=== PATIENT | male | born 1995 | race Caucasian/White ===

== ENCOUNTER 2017-11-21 20:51 | Emergency (ER) | payer OTHER, SELFPAY ==
[2017-11-21 20:56] VITALS: BP 143/97; PULSE 70; RESP 14; TEMP 37.1; O2SAT 98
--- NOTE | 2017-11-21 22:06 | ED.GENADUL_ITS ---
Disposition Clinical Impression: Hand laceration Disposition: HOME Condition: Fair Instructions: Laceration (ED) Additional Instructions: Keep wound clean, dry, covered. Monitor for signs of infection including redness, warmth, drainage, increased pain, fever/chills. If these arise please seek care urgently once again. He may wash with running water but do not soak or submerge this will increase her risk of infection. Please avoid activities that will increase her risk of infection such as submerging her hand, working in a dirty environment. If you are currently working outside, please wear gloves. Please return in 7 days for suture removal. Use Haim wrap to help support the area while he continue to heal. Avoid pushing off with hand or over extending the thumb as this may put undue pressure on the wound. Referrals: [facility] Emergency Dept. [Outside] Forms: Work Release Medical Decision Making - Medical Decision Making Patient presents with chief complaint of laceration to the left thenar eminence. On exam, he is a curvilinear 1.5 cm laceration. Patient reports he is up-to-date on tetanus. Subcutaneous tissue is noted. Patient continues to staff. She denied discussed closure techniques. Given the location of feel it is not a good candidate for adhesive as he is likely going to continue to put stress on the wound. Therefore, we discussed closure with sutures. We discussed risk/benefits as well as expected procedural steps. He voiced understanding and wished to proceed. Procedure note: Using standard sterile technique, 1% lidocaine plain was used to infiltrate the laceration. 5 cc was used. The sufficiently anesthetized the area. It was then copiously irrigated with sterile saline and chlorhexidine. Wound is explored to base in a bloodless field. No foreign body debris was noted. Fatty subcutaneous tissue is visualized. No muscular tendinous involvement is noted. Attention was then turned to closure. #3 simple interrupted sutures were placed using a 5-0 nylon. Patient tolerated this procedure well and a dry sterile bandage will be placed by nursing staff. Patient I discussed wound care in depth. Nursing staff applied sterile dressing and Haim wrap over this. I am hoping that with the Haim in place will be a gentle reminder to help Not over extend the thumb place undue pressure on the wound. We discussed the signs symptoms of infection when to seek care urgently once again. He will return in 7 days for suture removal. Advised Tylenol and/or ibuprofen as needed for discomfort. We discussed activities that he should avoid it will place excessive pressure on the wound as well as increase his risk of infection. Advised he may wash with running water but should not soak or submerge. He will keep current dressing on for the next 24 hours. After that time, we will keep wound clean, dry, covered. All his questions and concerns were addressed and he is in agreement with this plan. History of Present Illness - General Chief complaint: Laceration Stated complaint: LEFT THUMB INJURY Time Seen by Provider: 11/21/17 21:57 Source: patient, family, RN notes reviewed Mode of arrival: ambulatory Limitations: no limitations - History of Present Illness Initial comments: Patient is a 22-year-old, otherwise healthy male, with chief complaint of laceration to the proximal aspect of the left thumb. Patient is right-hand dominant. He is accompanied by mother and significant other. He reports that approximately 1.5 hours prior to arrival, while cleaning dishes at work, he suffered a laceration to the proximal left thumb. He denies any altered sensation. States the pain is minimal. Has been applying gauze to help with bleeding. Patient continues to actively bleed. Patient reports that he has had tetanus updated within the past year. - Related Data Unknown [No Known Home Meds] 11/21/17 Allergies Allergy/AdvReac Type Severity Reaction Status Date / Time No Known Allergies Allergy Unverified 11/21/17 21:09 Review of Systems Constitutional: no symptoms reported. denies: chills, fever Respiratory: no symptoms reported Musculoskeletal: as per HPI Skin: as per HPI Neurological: as per HPI. denies: numbness, paresthesias Past Medical History - Past Medical History Ankylosing spondylitis. General Exam - General Limitations: no limitations General appearance: alert, in no apparent distress - Eye Eye exam: Present: normal apperance - Respiratory Respiratory exam: Absent: respiratory distress - Extremities Exam Extremities exam: Present: full ROM, tenderness. Absent: normal inspection ( Exam the patient's left upper extremity is significant for curvilinear 1.5 cm laceration over the thenar eminence. Appears to be in the subcutaneous tissue. No muscular involvement is noted. Is good good range of motion good strength of the thumb. Ligamentously intact. Sensation is intact. No other evidence of trauma on exam.), joint swelling - Neurological Exam Neurological exam: Present: alert, normal gait. Absent: motor sensory deficit - Psychiatric Psychiatric exam: Present: normal affect, normal mood - Skin Skin exam: Absent: intact (As above) Course Vital Signs - 24 hr 11/21/17 20:56 Temperature 37.1 C Pulse 70 Respiratory 14 Rate Blood Pressure 143/97 Pulse Oximetry 98
== END 2017-11-21 22:26 | disposition home or self-care (01) ==
PROVIDERS: Emergency Provider Emergency Medicine; PCP Family Medicine
DX: S61.012A Laceration without foreign body of left thumb without damage to nail, initial encounter (principal); W26.8XXA Contact with other sharp object(s), not elsewhere classified, initial encounter; Y99.0 Civilian activity done for income or pay
CPT/HCPCS: 12001

== ENCOUNTER 2017-11-29 11:04 | Emergency (ER) | payer SELFPAY ==
[2017-11-29 11:08] VITALS: BP 120/78; PULSE 60; RESP 16; TEMP 36.7; O2SAT 100
--- NOTE | 2017-11-29 11:13 | ED.GENADUL ---
Disposition Clinical Impression: Visit for suture removal Disposition: HOME Condition: Good Additional Instructions: If you notice any redness, warmth, or fever please return immediately. If you notice any worsening of your symptoms, or any new symptoms such as vomiting, diarrhea, fever, chills, shortness of breath, chest pain, numbness, weakness, or fainting , please return immediately to the emergency department for reevaluation. Please follow up with your primary care provider as soon as possible for reassessment and reevaluation. As always, it was a pleasure participating in your medical care today. Medical Decision Making - Medical Decision Making Patient presents for suture removal. He demonstrates 3 simple interrupted sutures. The laceration occurred 8 days ago, and has healed well. No evidence of dehiscence, and or infection. The 3 sutures were removed, patient tolerated the procedure well. Sensation is intact. No evidence of significant abnormality on exam. The area was cleaned, patient will be discharged home. We discussed red flags which returned the patient understands. I have extensively reviewed the treatment plan and discharge instructions with the patient. I have addressed all patient concerns at this time. The patient was made aware of what symptoms to monitor for that would warrant a return to the emergency department. Discussed the plan with the patient, they demonstrate verbal understanding and agreement with our assessment and plan at this time. History of Present Illness - General Chief complaint: SutureRem Stated complaint: SUTURE REMOVAL Time Seen by Provider: 11/29/17 11:13 - History of Present Illness Initial comments: This is a pleasant 22-year-old male who presents for evaluation of suture removal in his left nondominant hand. 8 days ago he cut his hand while washing dishes. The area was cleaned irrigated and sutured with 3 simple interrupted sutures. Tolerated this well. He has had no complaints of redness, fever, warmth or drainage. He has no other complaints at this time. Immunizations are up-to-date. He denies any other pertinent medical history or problems. He denies any IV or illicit drug use. - Related Data Unknown [No Known Home Meds] 11/21/17 Allergies Allergy/AdvReac Type Severity Reaction Status Date / Time No Known Allergies Allergy Unverified 11/29/17 11:10 Review of Systems Other: 10 point review of systems was performed, pertinent positives and negatives are noted in the history of present illness. Past Medical History - Past Medical History Ankylosing spondylitis. General Exam - Other Other exam information: 1.Const: Well-nourished, Well-developed, appearing stated age 2.Eyes: PERRL, no conjunctival injection, and symmetrical lids. 3.ENT: Atraumatic external nose and ears. Moist MM. Neck: Symmetric, trachea midline, No thyromegaly. 4.CVS: +S1/S2, No murmurs or gallops. Peripheral pulses 2+ and equal in all extremities. Brisk capillary refill in all extremities. 5.RESP: Unlabored respiratory effort. Clear to auscultation bilaterally. No wheezes rales or rhonchi 6.GI: Soft, Nontender/Nondistended, No hepatosplenomegaly. No guarding or rebound. 7.MSK: Normocephalic/Atraumatic, Extremities w/o deformity or ttp No cyanosis or clubbing, Normal movement of all extremities 8.Skin: Warm, Dry. No rashes or lesions. The patient's left lower nondominant hand demonstrates 3 simple interrupted sutures over the left thenar eminence on the palmar aspect. No evidence of redness, drainage. The wound edges are well reapproximated and there is no evidence of dehiscence of the wound. Patient has tolerated the procedure well and has demonstrated notable good wound healing. 9.Neuro: environmental health technologist II-XII grossly intact. Sensation grossly intact, no focal neurologic deficits. 10.Psych: (AAO) x3. Appropriate mood and affect Course Vital Signs - 24 hr 11/29/17 11:08 Temperature 36.7 C Pulse 60 Respiratory 16 Rate Blood Pressure 120/78 Pulse Oximetry 100
== END 2017-11-29 11:19 | disposition home or self-care (01) ==
PROVIDERS: Emergency Provider Student in an Organized Health Care Education/Training Program; PCP Family Medicine
DX: S61.012D Laceration without foreign body of left thumb without damage to nail, subsequent encounter (principal); W26.8XXD Contact with other sharp object(s), not elsewhere classified, subsequent encounter; Z48.02 Encounter for removal of sutures

== ENCOUNTER 2017-12-20 15:08 | Outpatient (REF) | payer BC, SELFPAY ==
[2017-12-22 13:49] LABS: Lyme Ab w Rflx to Lyme Confirm Negative
== END 2017-12-20 15:28 ==
LOC: NCHCN 15:08
PROVIDERS: PCP Family Medicine; Visit Provider Nurse Practitioner
DX: R21 Rash and other nonspecific skin eruption (principal)
CPT/HCPCS: 86618

== ENCOUNTER 2018-01-13 17:48 | Emergency (ER) | payer BC, SELFPAY ==
[2018-01-13 17:53] VITALS: BP 128/80; PULSE 85; RESP 14; TEMP 37; O2SAT 99
--- NOTE | 2018-01-13 18:11 | ED.GENADUL_ITS ---
Discharge Plan Disposition Patient Disposition: HOME Condition: Good Discharge Details Chief Complaint: Orthopedic Clinical Impression: Boxer's metacarpal fracture, neck, closed Primary Care Provider: Rcoio Jerez ED Provider: Devin Gong Home Meds and New Rx's Prescriptions: No Action No Known Home Meds RF: 0 Discharge Instructions Instructions: Boxer Fracture (ED) Additional Instructions: Feel free to return to the emergency department for any new or significant worsening of symptoms otherwise call the orthopedic office tomorrow morning for arrangement of follow-up appointment. You may continue to use [id number] pain medication as needed for discomfort. Please keep splint on at all times until cleared by orthopedist per Stand Alone Forms: Work Release Referrals: Elia Akins MD [ [facility] STAFF PHYSICIAN] - (Call the office tomorrow morning for arrangement of your follow-up appointment) Discharge Data Discharge Date/Time-TO BE ENTERED AT DEPARTURE: 01/13/18 19:31 Medical Decision Making Right-handed blunt trauma after shutting hand in trunk of car. Happened 1 day ago. Deformity and pain to the distal fifth metacarpal plan on providing radiological imaging for assessment of acute fracture versus contusion/ hematoma. Patient denies any need for pain medication at this time Review of radiological imaging shows a mildly angulated boxer's fracture. Patient is primarily right-handed. Upon assessment of hand patient has minimal to no rotation of the fifth digit and has full range of motion and is only limited by pain and discomfort. Given this I feel that a premade boxers splint is appropriate and patient placed upon the follow-up list to follow-up with Dr. Akins after review of imaging is performed as per protocol. Patient is otherwise stable and no other abnormalities noted so patient discharged to use [id number] pain medication and to call the orthopedic office for arrangement of his follow-up appointment. HPI General Mode of arrival: ambulatory . Date/Time Provider Initiated Documentation: 01/13/18 18:00 . Limitations to Documentation: no limitations . Information obtained by: patient . History of Present Illness 22 year old M presents to the emergency department with the chief complaint of right hand injury, described as mild, with intensity rated at 4. Quality is described as aching, and is localized to the right and upper extremity. Patient reports no radiation. Patient started experiencing this day(s) (1) and it has been constant. No relieving factors improve symptom(s), No exacerbating factors reported . Patient notes no other symptoms.. Patient did receive the following treatments prior to arrival, none Related Data Home Medications Medication Instructions Recorded Confirmed Unknown [No Known Home Meds] 11/21/17 01/19/18 Allergies Allergy/AdvReac Type Severity Reaction Status Date / Time No Known Allergies Allergy Unverified 01/13/18 17:56 General Stated Complaint: Orthopedic GAMA: 4 Review of Systems Cardiovascular Denies chest pain and Denies dyspnea Respiratory Denies dyspnea Gastrointestinal Denies abdominal pain Musculoskeletal Reports as per HPI, Denies numbness and Denies tingling Integumentary/Breasts Denies rash Neurologic Denies confusion, Denies numbness, Denies sensory deficit and Denies tingling Psychiatric Denies confusion [facility] Social History Smoking/Tobacco Use Status: Never Exam Const General: cooperative, no acute distress and not ill appearing Orientation: alert, awake and oriented x3 HENMT Mouth: moist mucous membranes Resp Effort & Inspection: normal respiratory effort, able to speak in complete sentences and no respiratory distress Cardio Rate: regular rate Rhythm: regular rhythm Skin General skin exam: no rashes or lesions noted Neuro General: alert, awake, oriented x3, moves all extremities and no focal motor deficits Sensory Exam: no sensory deficits noted Extrem Right upper extremity: elbow/forearm Details: normal to inspection; no tenderness, wrist Details: normal to inspection and normal ROM; no tenderness and hand Details: normal capillary refill, neuromotor exam normal, neurosensory exam normal, tendon exam normal, tenderness Location: of the dorsal hand Location: over the 4th metacarpal and over the 5th metacarpal, vascular exam Details: radial pulse present Details: 2+, normal ROM of fingers and swelling Location: of the dorsal hand Location: over the 4th metacarpal and over the 5th metacarpal; no abrasions, no lacerations and no crepitus Course Vital Signs Temperature 37.0 C 01/13/18 17:53 Pulse 85 01/13/18 17:53 Respiratory Rate 14 01/13/18 17:53 Blood Pressure 128/80 01/13/18 17:53 Pulse Oximetry 99 01/13/18 17:53 Temperature 37.0 C 01/13/18 17:53 Temperature Source Temporal Artery Scan 01/13/18 17:53 Pulse 85 01/13/18 17:53 Respiratory Rate 14 01/13/18 17:53 Respiratory Effort Non-Labored 01/13/18 17:54 Blood Pressure 128/80 01/13/18 17:53 Blood Pressure Position Sitting 01/13/18 17:53 Pulse Oximetry 99 01/13/18 17:53 Oxygen Delivery Method Room Air 01/13/18 17:53 Oxygen Flow Rate 0 01/13/18 17:53 Pain Level 4 01/13/18 17:55
--- NOTE | 2018-01-13 18:32 | DI.RAD_ITS ---
SYMPTOMS/DIAGNOSIS: BLUNT TRAUMA RIGHT HAND: Three views. There is a comminuted fracture of the mid shaft of the right 5th metacarpal. There is mild volar angulation of the distal fracture. No joint involvement is seen. No other fracture or dislocation is present. There is swelling of the adjacent soft tissues. IMPRESSION: Right 5th metacarpal fracture.
--- NOTE | 2018-01-13 18:59 | DI.VRAD_ITS ---
EXAM: XR Right Hand Complete, 3 or more Views EXAM DATE/TIME: 01/13/2018 6:11 PM CLINICAL HISTORY: 22 years old, male; Injury or trauma; Injury history: Blunt trauma to right hand; Initial encounter; Blunt trauma (contusions or hematomas; Injury date: 01/13; Injury details: Blunt trauma to right hand, pain at 5th digit. ; Additional info: Patient unable to take wrist band off for images, artifact of wrist band seen. TECHNIQUE: XR Right hand 3 or more views. COMPARISON: CR RIGHT MIDDLE FINGER 03/02/2013 3:41 PM FINDINGS: Bones/joints: There is a slightly oblique minimally angulated fracture of the fifth metacarpal mid to distal shaft. There is comminution with a vertical component. It does not appear the articular surface is involved. There is adjacent soft tissue swelling to the fracture site. Soft tissues: Normal. IMPRESSION: Slightly angled mildly comminuted fracture fifth metacarpal shaft. COMMENT: Preliminary interpretation is based on receipt of 3 image(s). A final report will be issued subsequently. Dictated and Authenticated by: Karuna Ledbetter MD. Ordering:PRESTON VENTURA MD
[2018-01-13 19:31] VITALS: BP 128/80; PULSE 85; RESP 14; TEMP 37; O2SAT 99
== END 2018-01-13 19:31 | disposition home or self-care (01) ==
PROVIDERS: Emergency Provider Nurse Practitioner Family; PCP Family Medicine
DX: S62.326A Displaced fracture of shaft of fifth metacarpal bone, right hand, initial encounter for closed fracture (principal); W23.0XXD Caught, crushed, jammed, or pinched between moving objects, subsequent encounter
CPT/HCPCS: 26600; 73130; L3809

== ENCOUNTER 2018-01-19 15:26 | Outpatient (CLI) | payer BC, SELFPAY ==
--- NOTE | 2018-01-19 15:12 | DI.RAD_ITS ---
SYMPTOM/DIAGNOSIS: F/U BOXERS FX RIGHT HAND: Three views. Comparison is made with 01/13/18. There has been no change in alignment of the fracture involving the shaft of the right fifth metacarpal bone. No new fractures or dislocations are seen. IMPRESSION: Stable right fifth metacarpal fracture.
== END 2018-01-19 15:46 ==
PROVIDERS: PCP Family Medicine; Visit Provider Student in an Organized Health Care Education/Training Program
DX: S62.321A Displaced fracture of shaft of second metacarpal bone, left hand, initial encounter for closed fracture (principal)
CPT/HCPCS: 73130

== ENCOUNTER 2018-01-31 12:41 | Outpatient (REF) | payer BC, SELFPAY ==
[2018-02-01 12:32] LABS: Lyme Ab w Rflx to Lyme Confirm Negative
== END 2018-01-31 13:01 ==
LOC: NCHCN 12:41
PROVIDERS: PCP Family Medicine; Visit Provider Nurse Practitioner
DX: R21 Rash and other nonspecific skin eruption (principal)
CPT/HCPCS: 86618

== ENCOUNTER 2018-02-09 10:22 | Outpatient (CLI) | payer BC, SELFPAY ==
--- NOTE | 2018-02-09 10:05 | DI.RAD_ITS ---
SYMPTOM/DIAGNOSIS: RT BOXERS FX RIGHT HAND: A healing fracture of the distal metaphysis of the fifth metacarpal is demonstrated with no interval change in alignment. Early callous formation is demonstrated and there is nothing to suggest that healing is not progressing satisfactorily at the present time.
== END 2018-02-09 10:42 ==
PROVIDERS: PCP Family Medicine; Visit Provider Student in an Organized Health Care Education/Training Program
DX: S62.326D Displaced fracture of shaft of fifth metacarpal bone, right hand, subsequent encounter for fracture with routine healing (principal)
CPT/HCPCS: 73130

== ENCOUNTER 2018-08-13 08:48 | Emergency (ER) | payer BC, SELFPAY ==
[2018-08-13 08:52] VITALS: BP 128/80; PULSE 58; RESP 15; TEMP 37; O2SAT 100
--- NOTE | 2018-08-13 09:03 | ED.GENADUL_ITS ---
Discharge Plan Disposition Patient Disposition: HOME Discharge Details Chief Complaint: DentalOral Clinical Impression: Dental infection, Dental caries Primary Care Provider: Rocio Jerez ED Provider: Brandon Dawn Home Meds and New Rx's Prescriptions: New penicillin V potassium 500 mg tablet 500 mg PO QID 10 Days Qty: 40 RF: 0 Continued ibuprofen [IBU-200] 200 mg Tablet 400 mg PO TID-QID PRNRF: 0 Discharge Instructions Instructions: Dental Abscess (ED), Dental Caries (ED) Referrals: Rocio Jerez [Primary Care Provider] - 1 week Discharge Data Discharge Date/Time-TO BE ENTERED AT DEPARTURE: 08/13/18 09:11 Medical Decision Making This is a nontoxic-appearing 23-year-old male presenting to the emergency department with dental pain. Noted dental fracture of the #17 tooth. Fracture is chronic with ongoing infection. Temporary filling not indicated. Plan is to place patient on penicillin 500 mg 4 times daily x10 days and have him follow-up with his dentist as scheduled. Patient encouraged to return should symptoms worsen or he develop fever, facial erythema, difficulty swallowing. HPI General Date/Time Provider Initiated Documentation: 08/13/18 08:54 . HPI Narrative: Patient is a 23-year-old male presenting to the emergency department with a chief complaint of left lower dental pain. Pain is been fluctuating in intens ity. He admits to a chronic dental infection for which he is seeing his dentist for. He was scheduled to have a dental extraction last month however was unable to pay for the procedure. He has been on amoxicillin most recently 2 weeks ago. He currently denies any fevers or chills. He has a repeat scheduled extraction for September 2018 Related Data Home Medications Medication Instructions Recorded Confirmed ibuprofen [IBU-200] 400 mg PO TID-QID PRN 08/13/18 08/13/18 penicillin V potassium 500 mg PO QID 10 Days #40 tab 08/13/18 Previous Rx's Medication Instructions Recorded penicillin V potassium 500 mg PO QID 10 Days #40 tab 08/13/18 Allergies Allergy/AdvReac Type Severity Reaction Status Date / Time No Known Allergies Allergy Unverified 08/13/18 08:58 General Stated Complaint: DentalOral GAMA: 4 Review of Systems Constitutional Denies body ache(s), Denies chills and Denies fever(s) Eyes Denies blurry vision and Denies eye discharge ENT Denies neck pain, Denies sore throat and Denies throat swelling Musculoskeletal Denies muscle cramps, Denies muscle weakness and Denies neck pain Allergic/Immunologic Denies throat swelling [facility] Social History Smoking/Tobacco Use Status: Current every day Tobacco Type: cigarettes Alcohol Intake: never Drug use: Daily Substance use type: marijuana Do you feel safe at home: Yes Do you feel safe in your relationship?: Yes Exam Const General: cooperative, healthy appearing, comfortable and no acute distress Orientation: alert, awake and oriented x3 HENMT Head: normal to inspection Ears: hearing grossly normal bilaterally General nose exam: external nose normal Face and sinus: normal facial exam Mouth: oral mucosae normal Teeth and gingiva: abnormal tooth or associated gingiva (Dental carry and fracture of the #17 tooth. Mild gingival swelling. ) and other (No gingival abscess) Throat: posterior oropharynx normal Neck Neck: normal visual inspection Lymphatic: no lymphadenopathy noted Resp Effort & Inspection: normal respiratory effort Skin General skin exam: no rashes or lesions noted Course Vital Signs Temperature 37 C 08/13/18 08:52 Pulse 58 L 08/13/18 08:52 Respiratory Rate 15 08/13/18 08:52 Blood Pressure 128/80 08/13/18 08:52 Pulse Oximetry 100 08/13/18 08:52 Temperature 37 C 08/13/18 08:52 Temperature Source Temporal Artery Scan 08/13/18 08:52 Pulse 58 L 08/13/18 08:52 Respiratory Rate 15 08/13/18 08:52 Respiratory Effort Non-Labored 08/13/18 08:57 Blood Pressure 128/80 08/13/18 08:52 Blood Pressure Position Sitting 08/13/18 08:52 Pulse Oximetry 100 08/13/18 08:52 Oxygen Delivery Method Room Air 08/13/18 08:52 Oxygen Flow Rate 0 08/13/18 08:52 Pain Level 5 08/13/18 08:59
== END 2018-08-13 09:11 | disposition home or self-care (01) ==
PROVIDERS: Emergency Provider Physician Assistant; PCP Family Medicine
DX: K04.7 Periapical abscess without sinus (principal); K02.9 Dental caries, unspecified; F17.210 Nicotine dependence, cigarettes, uncomplicated
CPT/HCPCS: 99283

== ENCOUNTER 2019-11-23 10:08 | Outpatient (REF) | payer BC, SELFPAY ==
[2019-11-23 21:15] LABS: ALT 24 U/L (16-63); AST 19 U/L (15-37); Albumin 4.2 g/dL (3.4-5.0); Alkaline Phosphatase 110 U/L (46-116); Anion Gap 6.8 mmol/L (3-11); BUN 11 mg/dL (7-18); Bilirubin, Total 0.5 mg/dL (0.2-1.0); CO2 31.2 mmol/L (21.0-32.0); CREATININE 1.14 mg/dL (0.70-1.30); Calcium 9.4 mg/dL (8.5-10.1); Chloride 104 mmol/L (98-107); Glucose 74 mg/dL (74-106); Potassium 4.5 mmol/L (3.5-5.1); Sodium 142 mmol/L (136-145); Total Protein 7.6 g/dL (6.4-8.2)
== END 2019-11-23 10:28 ==
LOC: NCHCN 10:08
PROVIDERS: PCP Family Medicine; Visit Provider Physician Assistant
DX: B35.0 Tinea barbae and tinea capitis (principal)
CPT/HCPCS: 80053

== ENCOUNTER 2021-05-09 17:56 | Outpatient (REF) | payer SELFPAY ==
[2021-05-09 20:47] LABS: Abs Immature Grans 0.03 10^3/uL (0.0-0.06); Absolute Basophil Count 0.06 10^3/uL (0.0-0.2); Absolute Eosinophil Count 0.18 10^3/uL (0.0-0.7); Absolute Lymphocyte Count 3.09 10^3/uL (1.2-3.4); Absolute Monocyte Count 0.76 10^3/uL (0.1-0.8); Absolute Neutrophil Count 3.86 10^3/uL (1.2-6.7); Basophils % 0.8; Eosinophils % 2.3; HCT 46.9 % (40.0-50.0); HGB 16.4 g/dL (13.5-17.5); Immature Grans % 0.4; Lymphocytes % 38.7; MCH 32.5 pg (27.0-33.0); MCV 92.9 fL (80-95); MPV 10.7 fL (8.0-11.0); Monocytes % 9.5; Neutrophils % 48.3; Nucleated RBC 0 %; Platelet Count 249 10^3/uL (130-400); RBC 5.05 10^6/uL (4.36-5.78); RDW-SD 40.9 fL; WBC 7.98 10^3/uL (4.4-10.8)
[2021-05-09 20:54] LABS: ESR 2 mm/hr (0-15)
[2021-05-09 21:25] LABS: ALT 26 U/L (16-63); AST 19 U/L (15-37); Albumin 4.5 g/dL (3.4-5.0); Alkaline Phosphatase 109 U/L (46-116); Anion Gap 9.3 mmol/L (3-11); BUN 10 mg/dL (7-18); Bilirubin, Total 0.5 mg/dL (0.2-1.0); CO2 29.7 mmol/L (21.0-32.0); Calcium 9.5 mg/dL (8.5-10.1); Chloride 103 mmol/L (98-107); Glucose 88 mg/dL (74-106); Potassium 4.2 mmol/L (3.5-5.1); Sodium 142 mmol/L (136-145); TSH (W/Ref FT4) 1.17 uIU/mL (0.36-3.74); Total Protein 7.9 g/dL (6.4-8.2)
[2021-05-12 10:36] LABS: Hepatitis C Ab w Rflx HCV PCR Negative (Negative)
[2021-05-12 10:57] LABS: HIV-1/2 Ag & Ab Screen Negative (Negative)
== END 2021-05-09 17:57 | disposition home or self-care (01) ==
LOC: NCHCN 17:56
PROVIDERS: PCP Family Medicine; Visit Provider Family Medicine
DX: Z00.00 Encounter for general adult medical examination without abnormal findings (principal); R53.83 Other fatigue; Z11.4 Encounter for screening for human immunodeficiency virus [HIV]; Z11.59 Encounter for screening for other viral diseases
CPT/HCPCS: 80053; 85652; 86803; 87389; 84443; 85025